=== PATIENT | female | born 1955 | race Caucasian/White ===

== ENCOUNTER 2017-11-23 09:51 | Outpatient (CLI) | payer MEDICARE, MEDICAID | END 2017-11-23 09:52 | disposition home or self-care (01) | LOC: EDSTATUS 10:00 | PROVIDERS: ATTEND Family Medicine | DX: B91 Sequelae of poliomyelitis (principal) | CPT/HCPCS: 97139; G8978; G8979; G8980 ==

== ENCOUNTER 2023-08-16 14:27 | Emergency (ER) | payer MEDICAID, OTHER ==
[2023-08-16 15:51] LABS: #Eosinphils 0.1 thou/uL (0.0-0.7); #Monocytes 0.6 thou/uL (0.11-0.59); #Neutrophils 7.9 thou/uL (1.40-6.50); %Basophils 0.2 % (0.0-1.0); %Lymphocytes 19.2 % (21.0-51.0); %Monocytes 5.6 % (0.0-10.0); %Neutrophils 73.4 % (42.0-75.0); Hematocrit 31.8 % (36.0-47.0); Hemoglobin 9.5 g/dL (12.0-16.0); Mean Corpuscular HGB CONC 29.9 g/dL (32.0-36.0); Mean Corpuscular Hemoglobin 27.1 pg (27.0-31.0); Mean Corpuscular Volume 90.9 fl (78.0-98.0); Mean Platelet Volume 9.5 fL (7.4-10.4); Platelet Count 299 10x3/uL (130-400); RBC Distribution Width 17.3 % (11.5-14.5); White Blood Cell (WBC) Count 10.8 10x3/uL (4.8-10.8)
[2023-08-16 16:24] LABS: ALT (SGPT) 10 U/L (8-55); AST (SGOT) 12 U/L (5-34); Albumin 2.5 g/dL (3.4-4.8); Alkaline Phosphatase 138 U/L (40-110); Anion Gap 16 mmol/L (10-20); BUN (Urea Nitrogen) 14 mg/dL (9.8-20.1); Bilirubin, Total 0.6 mg/dL (0.2-1.2); Calc. Creatinine Clearance 0 mL/min (70-130); Calcium 9.2 mg/dL (7.8-10.44); Carbon Dioxide 22 mmol/L (23-31); Chloride 99 mmol/L (98-107); Estimated GFR 88; Globulin 4.5 g/dL (2.4-3.5); Glucose 115 mg/dL (80-115); Potassium 3.8 mmol/L (3.5-5.1); Sodium 133 mmol/L (136-145)
== END 2023-08-16 21:53 | disposition home or self-care (01) ==
LOC: ERS 14:27
DX: L03.317 Cellulitis of buttock (principal); I10 Essential (primary) hypertension; F17.210 Nicotine dependence, cigarettes, uncomplicated
CPT/HCPCS: 36415; 80053; 85025; 99283

== ENCOUNTER 2023-09-15 23:30 | Inpatient (IN) | payer OTHER ==
[2023-09-16 00:33] LABS: #Monocytes 0.5 thou/uL (0.11-0.59); #Neutrophils 8.3 thou/uL (1.40-6.50); %Basophils 0.2 % (0.0-1.0); %Eosinophils 0.2 % (0.0-10.0); %Lymphocytes 9.7 % (21.0-51.0); %Monocytes 5.3 % (0.0-10.0); %Neutrophils 83.9 % (42.0-75.0); Hematocrit 29.2 % (36.0-47.0); Hemoglobin 8.8 g/dL (12.0-16.0); Mean Corpuscular HGB CONC 30.1 g/dL (32.0-36.0); Mean Corpuscular Hemoglobin 27.6 pg (27.0-31.0); Mean Corpuscular Volume 91.5 fl (78.0-98.0); Mean Platelet Volume 9.6 fL (7.4-10.4); Platelet Count 274 10x3/uL (130-400); RBC Distribution Width 16.9 % (11.5-14.5); Red Blood Cell (RBC) Count 3.19 mill/uL (4.20-5.40); White Blood Cell (WBC) Count 9.9 10x3/uL (4.8-10.8)
[2023-09-16 00:54] LABS: ALT (SGPT) 11 U/L (8-55); AST (SGOT) 16 U/L (5-34); Albumin 2.5 g/dL (3.4-4.8); Alkaline Phosphatase 122 U/L (40-110); Anion Gap 15 mmol/L (10-20); BUN (Urea Nitrogen) 21 mg/dL (9.8-20.1); Bilirubin, Total 0.5 mg/dL (0.2-1.2); Calc. Creatinine Clearance 0 mL/min (70-130); Calcium 10.6 mg/dL (7.8-10.44); Carbon Dioxide 20 mmol/L (23-31); Chloride 104 mmol/L (98-107); Estimated GFR 55; Globulin 4.4 g/dL (2.4-3.5); Glucose 83 mg/dL (80-115); Potassium 3.3 mmol/L (3.5-5.1); Protein, Total 6.9 g/dL (5.8-8.1); Sodium 136 mmol/L (136-145)
[2023-09-16] MEDS ORDERED: Potassium Chloride 20 MEQ TAB ONE (01:20)
[2023-09-16] MEDS ORDERED: Sodium Chloride 0.9% 100 ML ONE (01:46)
[2023-09-16] MEDS ORDERED: Cefepime 2 GM VIAL ONE (01:46)
[2023-09-16] MEDS ORDERED: Morphine 4 MG/ML VIAL ONE (01:46)
[2023-09-16] MEDS ORDERED: Ondansetron PF 4 MG/2 ML Vial ONE (01:46)
[2023-09-16] MEDS ORDERED: NS 0.9% w/ 20 MEQ KCL 1,000 ML ONE (01:47)
[2023-09-16 02:03] LABS: Magnesium 1.6 mg/dL (1.6-2.6)
[2023-09-16 02:05] LABS: Troponin I Less than 0.010 ng/mL (< 0.028)
[2023-09-16] MEDS ORDERED: Acetaminophen 650 MG Suppository ONE (02:12)
[2023-09-16 02:50] LABS: Bilirubin Negative (Negative); Blood, Urine Large (Negative); Glucose, Urine (Dipstick) Negative (Negative); Ketone, Urine Trace mg/dL (Negative); Leukocyte Moderate (Negative); Nitrite Positive (Negative); Protein, Urine (Dipstick) 100 mg/dL (Neg-Trace); Specific Gravity, Urine 1.025 (1.005-1.030); Urobilinogen 0.2 mg/dL (Less than 2)
[2023-09-16 02:51] LABS: Clarity Turbid (Clear)
[2023-09-16 02:54] LABS: SARS-CoV-2 NAA Rapid Test Not Detected (NotDetected)
[2023-09-16 03:03] LABS: Bacteria/HPF 4+ HPF (None Seen); CAUTI Indications for Culture Fever or rigors; RBC/HPF Greater than 50 HPF (0-3); Squamous Epithelial None Seen HPF (0-3); WBC/HPF Greater than 50 HPF (0-3)
[2023-09-16 03:05] LABS: Bilirubin Unable to Interpret (Negative); Blood, Urine Unable to Interpret (Negative); Clarity Turbid (Clear); Glucose, Urine (Dipstick) Unable to Interpret mg/dL (Negative); Ketone, Urine Unable to Interpret mg/dL (Negative); Leukocyte Unable to Interpret Leu/uL (Negative); Nitrite Unable to Interpret (Negative); Protein, Urine (Dipstick) Unable to Interpret mg/dL (Neg-Trace); Specific Gravity, Urine 1.021 (1.002-1.036); Urine Culture Reflex Yes Yes; Urobilinogen UNABLE TO INTERPRET mg/dL (Less than 2)
[2023-09-16 03:07] LABS: Bacteria/HPF 4+ HPF (None Seen); CAUTI Indications for Culture Dysuria,urgency,freq; RBC/HPF 21-50 HPF (0-3); WBC/HPF Greater than 50 HPF (0-3)
[2023-09-16] MEDS ORDERED: Ondansetron ODT 4 MG TAB PO PRN (04:19)
[2023-09-16] MEDS ORDERED: Acetaminophen 650 MG Suppository PR PRN (04:19)
[2023-09-16] MEDS ORDERED: NOREPINEPHRINE 8 MG/250 ML-D5W 250 ML ONE (04:55)
[2023-09-16] MEDS ORDERED: NOREPINEPHRINE 8 MG/250 ML-D5W 250 ML IVPB SCH (07:00)
[2023-09-16] MEDS ORDERED: Electrolyte Replacement Protocol 1 EACH FS SCH (07:30)
[2023-09-16] MEDS ORDERED: Electrolyte Replacement Protocol FS PRN (08:00)
[2023-09-16] MEDS ORDERED: Ipratropium/Albuterol 3 ML NEB NEB PRN (08:20)
[2023-09-16] MEDS: Sodium Chloride 0.9% 500 ML IV SCH (08:59)
[2023-09-16] MEDS: Pantoprazole 40 MG VIAL IVP SCH (08:59)
[2023-09-16] MEDS: Senokot S 8.6-50 MG TAB PO SCH (08:59)
[2023-09-16] MEDS: Hydrocortisone Sod Succ/PF 100 mg/2 ml Vial IVP SCH (08:59)
[2023-09-16] MEDS: Vancomycin (BATCH) 1.5 GM in Premix 1 BAG IVPB SCH (08:59)
[2023-09-16] MEDS: Sodium Chloride 0.9% 1,000 ML IV SCH (08:59)
[2023-09-16] MEDS: Albumin 25% 25 GM (100 mL) BOT IVPB SCH (08:59)
[2023-09-16] MEDS ORDERED: Apixaban 5 MG TAB PO SCH (09:00)
[2023-09-16 09:09] LABS: Anion Gap 14 mmol/L (10-20); BUN (Urea Nitrogen) 25 mg/dL (9.8-20.1); Calc. Creatinine Clearance 50 mL/min (70-130); Carbon Dioxide 18 mmol/L (23-31); Chloride 108 mmol/L (98-107); Estimated GFR 45; Glucose 111 mg/dL (80-115); Magnesium 1.5 mg/dL (1.6-2.6); Phosphorus 3.6 mg/dL (2.3-4.7); Potassium 3.6 mmol/L (3.5-5.1); Sodium 136 mmol/L (136-145)
[2023-09-16 09:15] LABS: #Monocytes 0.7 thou/uL (0.11-0.59); #Neutrophils 9.7 thou/uL (1.40-6.50); %Basophils 0.3 % (0.0-1.0); %Lymphocytes 8.9 % (21.0-51.0); %Monocytes 6.2 % (0.0-10.0); %Neutrophils 83.4 % (42.0-75.0); Hematocrit 31.5 % (36.0-47.0); Hemoglobin 8.8 g/dL (12.0-16.0); Mean Corpuscular HGB CONC 27.9 g/dL (32.0-36.0); Mean Corpuscular Hemoglobin 27.4 pg (27.0-31.0); Mean Platelet Volume 10.4 fL (7.4-10.4); Platelet Count 258 10x3/uL (130-400); RBC Distribution Width 17.2 % (11.5-14.5); Red Blood Cell (RBC) Count 3.21 mill/uL (4.20-5.40); White Blood Cell (WBC) Count 11.6 10x3/uL (4.8-10.8)
[2023-09-16 09:17] LABS: Mean Corpuscular Volume 98.1 fl (78.0-98.0)
[2023-09-16 10:38] LABS: Ovalocytes SLIGHT = 2-5 cells (100X) (0-1/hpf)
[2023-09-16 10:39] LABS: Platelet Adequacy Comment Appears Adequate
[2023-09-16] MEDS ORDERED: Potassium Bicarbonate/Cit Ac 20 MEQ TAB PO SCH (11:30)
[2023-09-16] MEDS: Magnesium 2 GM/50 ML(in water) 2 GM in Premix 1 BAG IVPB SCH (12:32)
[2023-09-16] MEDS: Cefepime 1 GM in Sodium Chloride 0.9% 100 ML IVPB SCH (12:32)
[2023-09-16] MEDS ORDERED: Iopamidol 370 76% 100 ML VIAL ONE (13:19)
[2023-09-16] MEDS: HYDROcodone/Acetaminophen 5/325 mg Tablet PO PRN (17:00)
[2023-09-17 04:53] LABS: #Monocytes 0.2 thou/uL (0.11-0.59); #Neutrophils 6.7 thou/uL (1.40-6.50); %Monocytes 2.5 % (0.0-10.0); %Neutrophils 86.9 % (42.0-75.0); Hemoglobin 6.4 g/dL (12.0-16.0); Mean Corpuscular HGB CONC 29.5 g/dL (32.0-36.0); Mean Corpuscular Hemoglobin 27.1 pg (27.0-31.0); Mean Platelet Volume 10.2 fL (7.4-10.4); Platelet Count 214 10x3/uL (130-400); RBC Distribution Width 17.1 % (11.5-14.5); Red Blood Cell (RBC) Count 2.36 mill/uL (4.20-5.40); White Blood Cell (WBC) Count 7.7 10x3/uL (4.8-10.8)
[2023-09-17 05:10] LABS: Hematocrit 21.7 % (36.0-47.0); Mean Corpuscular Volume 91.9 fl (78.0-98.0)
[2023-09-17 05:16] LABS: Anion Gap 15 mmol/L (10-20); BUN (Urea Nitrogen) 28 mg/dL (9.8-20.1); Calc. Creatinine Clearance 47 mL/min (70-130); Calcium 9.8 mg/dL (7.8-10.44); Carbon Dioxide 18 mmol/L (23-31); Chloride 110 mmol/L (98-107); Estimated GFR 41; Glucose 137 mg/dL (80-115); Magnesium 2.4 mg/dL (1.6-2.6); Potassium 3.8 mmol/L (3.5-5.1); Sodium 139 mmol/L (136-145)
[2023-09-17] MEDS: Vancomycin (BATCH) 1.25 GM in Premix 1 BAG IVPB SCH (05:31)
[2023-09-17 10:11] VITALS: BMI 30.5
[2023-09-17] MEDS ORDERED: Rocuronium Bromide 10 MG/ML (10ML VIAL) ONE (10:34)
[2023-09-17] MEDS ORDERED: fentaNYL PF 100 MCG/2 ML SYRINGE ONE (10:34)
[2023-09-17] MEDS ORDERED: Midazolam HCl 2 mg/2 ml Vial ONE (10:34)
[2023-09-17] MEDS ORDERED: PROPOFOL 20 ML ONE (10:34)
[2023-09-17] MEDS ORDERED: Lidocaine 2% PF 5 ML VIAL ONE (10:34)
[2023-09-17] MEDS ORDERED: Bupivacaine 0.25% HCL 30 ML VIAL ONE (10:36)
[2023-09-17] MEDS ORDERED: EPINEPHrine 1 MG/ML VIAL ONE (10:36)
[2023-09-17] MEDS: Lactated Ringer's 1,000 ML IV SCH (12:55)
[2023-09-17] MEDS: Ondansetron PF 4 MG/2 ML Vial IVP PRN (12:55)
[2023-09-17 17:57] LABS: Hematocrit 27.3 % (36.0-47.0); Hematocrit 27.8 % (36.0-47.0); Hemoglobin 8.4 g/dL (12.0-16.0); Hemoglobin 8.6 g/dL (12.0-16.0); Mean Corpuscular HGB CONC 30.8 g/dL (32.0-36.0); Mean Platelet Volume 9.9 fL (7.4-10.4); Platelet Count 240 10x3/uL (130-400); Platelet Count 246 10x3/uL (130-400); White Blood Cell (WBC) Count 11.9 10x3/uL (4.8-10.8)
[2023-09-17] MEDS: HYDROcodone/Acetaminophen 5/325 mg Tablet PO PRN (20:15)
[2023-09-17] MEDS: guaiFENesin ER 600 MG TAB PO SCH (20:16)
[2023-09-17] MEDS: Hydrocortisone Sod Succ/PF 100 mg/2 ml Vial IVP SCH (20:16)
[2023-09-18 04:29] LABS: #Monocytes 0.3 thou/uL (0.11-0.59); #Neutrophils 9.9 thou/uL (1.40-6.50); %Basophils 0.1 % (0.0-1.0); %Lymphocytes 10.1 % (21.0-51.0); %Monocytes 2.8 % (0.0-10.0); Hematocrit 25.9 % (36.0-47.0); Mean Corpuscular HGB CONC 30.9 g/dL (32.0-36.0); Mean Corpuscular Hemoglobin 28.1 pg (27.0-31.0); Mean Corpuscular Volume 90.9 fl (78.0-98.0); Mean Platelet Volume 10.1 fL (7.4-10.4); Platelet Count 233 10x3/uL (130-400); RBC Distribution Width 17.2 % (11.5-14.5); Red Blood Cell (RBC) Count 2.85 mill/uL (4.20-5.40); White Blood Cell (WBC) Count 11.5 10x3/uL (4.8-10.8)
[2023-09-18] MEDS: Morphine 2 MG/ML VIAL SLOW IVP PRN (04:44)
[2023-09-18 04:54] LABS: Vancomycin, Trough 20.2 ug/mL
[2023-09-18 04:58] LABS: Anion Gap 10 mmol/L (10-20); BUN (Urea Nitrogen) 28 mg/dL (9.8-20.1); Calc. Creatinine Clearance 64 mL/min (70-130); Calcium 9.6 mg/dL (7.8-10.44); Carbon Dioxide 20 mmol/L (23-31); Chloride 110 mmol/L (98-107); Estimated GFR 59; Glucose 117 mg/dL (80-115); Potassium 3.4 mmol/L (3.5-5.1); Sodium 137 mmol/L (136-145)
[2023-09-18] MEDS ORDERED: PROPOFOL 20 ML ONE (07:01)
[2023-09-18] MEDS ORDERED: fentaNYL PF 100 MCG/2 ML SYRINGE ONE (07:01)
[2023-09-18] MEDS ORDERED: Rocuronium Bromide 10 MG/ML (10ML VIAL) ONE (07:02)
[2023-09-18] MEDS ORDERED: Lidocaine 1% PF 5 ML VIAL ONE ×2 (07:02→12:33)
[2023-09-18] MEDS ORDERED: Famotidine/PF 20 mg/2ml Vial ONE (07:31)
[2023-09-18] MEDS ORDERED: Midazolam HCl 2 mg/2 ml Vial ONE (07:31)
[2023-09-18] MEDS ORDERED: ePHEDrine Sulfate 50 MG/10 ML VIAL ONE (08:18)
[2023-09-18] MEDS ORDERED: SUGAMMADEX SODIUM 200 MG/2 ML VIAL ONE (08:23)
[2023-09-18] MEDS ORDERED: Ondansetron PF 4 MG/2 ML Vial ONE (08:23)
[2023-09-18] MEDS ORDERED: PACU-Morphine 4MG/ML VIAL SLOW IVP PRN (08:47)
[2023-09-18] MEDS ORDERED: Ondansetron HCl/PF 4 MG/2 ML Vial IVP PRN (08:47)
[2023-09-18] MEDS ORDERED: Promethazine HCl 25 MG/ML VIAL IM PRN (08:47)
[2023-09-18] MEDS: Potassium Chloride 20 MEQ in Premix 1 BAG IVPB SCH (10:42)
[2023-09-18] MEDS ORDERED: Sodium Bicarbonate 0.5 MEQ/ML SDV 10 ML ONE (12:33)
[2023-09-18] MEDS ORDERED: Iopamidol 100 ML FS ONE (12:33)
[2023-09-18] MEDS ORDERED: fentaNYL 50 mcg/mL 1 mL Vial ONE (12:58)
[2023-09-18] MEDS: diphenhydrAMINE 50 MG/ML VIAL IVP SCH (14:12)
[2023-09-18] MEDS: Gabapentin 300 MG CAP PO SCH (21:14)
[2023-09-19 06:00] LABS: Anion Gap 10 mmol/L (10-20); BUN (Urea Nitrogen) 23 mg/dL (9.8-20.1); Calc. Creatinine Clearance 80 mL/min (70-130); Calcium 9.7 mg/dL (7.8-10.44); Carbon Dioxide 21 mmol/L (23-31); Chloride 110 mmol/L (98-107); Estimated GFR 78; Glucose 125 mg/dL (80-115); Potassium 3.9 mmol/L (3.5-5.1); Sodium 137 mmol/L (136-145)
[2023-09-19 06:13] LABS: #Monocytes 0.4 thou/uL (0.11-0.59); #Neutrophils 8.4 thou/uL (1.40-6.50); %Basophils 0.1 % (0.0-1.0); %Lymphocytes 12.1 % (21.0-51.0); %Monocytes 3.5 % (0.0-10.0); %Neutrophils 83.4 % (42.0-75.0); Hematocrit 30.3 % (36.0-47.0); Hemoglobin 9.4 g/dL (12.0-16.0); Mean Corpuscular Hemoglobin 27.7 pg (27.0-31.0); Mean Corpuscular Volume 89.4 fl (78.0-98.0); Platelet Count 189 10x3/uL (130-400); RBC Distribution Width 17.1 % (11.5-14.5); Red Blood Cell (RBC) Count 3.39 mill/uL (4.20-5.40)
[2023-09-19] MEDS: Hydrocortisone Sod Succ/PF 100 mg/2 ml Vial IVP SCH (10:05)
[2023-09-19] MEDS: Amlodipine 5 MG TAB PO SCH (10:06)
[2023-09-19] MEDS: Acetaminophen 325 MG TAB PO PRN (10:25)
[2023-09-19] MEDS ORDERED: Calcium Carbonate 500 MG ChewTAB PO PRN (19:28)
[2023-09-19] MEDS: Apixaban 5 MG TAB PO SCH (21:47)
[2023-09-20 07:05] LABS: Anion Gap 13 mmol/L (10-20); BUN (Urea Nitrogen) 22 mg/dL (9.8-20.1); Calc. Creatinine Clearance 92 mL/min (70-130); Calcium 9.7 mg/dL (7.8-10.44); Carbon Dioxide 22 mmol/L (23-31); Chloride 110 mmol/L (98-107); Estimated GFR 92; Glucose 76 mg/dL (80-115); Potassium 3.7 mmol/L (3.5-5.1); Sodium 141 mmol/L (136-145)
[2023-09-20 07:28] LABS: #Monocytes 1.3 thou/uL (0.11-0.59); %Basophils 0.1 % (0.0-1.0); %Eosinophils 0.2 % (0.0-10.0); %Lymphocytes 23.8 % (21.0-51.0); %Monocytes 7.9 % (0.0-10.0); %Neutrophils 67.3 % (42.0-75.0); Hematocrit 35.6 % (36.0-47.0); Hemoglobin 10.9 g/dL (12.0-16.0); Mean Corpuscular HGB CONC 30.6 g/dL (32.0-36.0); Mean Corpuscular Hemoglobin 27.7 pg (27.0-31.0); Mean Corpuscular Volume 90.6 fl (78.0-98.0); Mean Platelet Volume 11.3 fL (7.4-10.4); Platelet Count 190 10x3/uL (130-400); Red Blood Cell (RBC) Count 3.93 mill/uL (4.20-5.40); White Blood Cell (WBC) Count 16.3 10x3/uL (4.8-10.8)
[2023-09-20] MEDS ORDERED: oxyCODONE 5 MG TAB PO PRN (08:18)
[2023-09-20] MEDS: Meropenem 1 GM in Sodium Chloride 0.9% 100 ML IVPB SCH ×2 (08:51→17:20)
[2023-09-20] MEDS: Acetaminophen 500 MG TAB PO SCH (08:56)
[2023-09-20] MEDS ORDERED: Lidocaine 1% PF 5 ML VIAL ONE (08:57)
[2023-09-20] MEDS ORDERED: Sodium Bicarbonate 0.5 MEQ/ML SDV 10 ML ONE (08:57)
[2023-09-20] MEDS: HYDROcodone/Acetaminophen 5/325 mg Tablet PO PRN (17:29)
[2023-09-20] MEDS: Nicotine 14 MG PATCH TD SCH (18:34)
[2023-09-21 05:41] LABS: #Eosinphils 0.1 thou/uL (0.0-0.7); #Monocytes 0.5 thou/uL (0.11-0.59); #Neutrophils 7.5 thou/uL (1.40-6.50); %Basophils 0.1 % (0.0-1.0); %Eosinophils 0.8 % (0.0-10.0); %Monocytes 4.9 % (0.0-10.0); %Neutrophils 75.6 % (42.0-75.0); Hematocrit 28.5 % (36.0-47.0); Hemoglobin 8.7 g/dL (12.0-16.0); Mean Corpuscular HGB CONC 30.5 g/dL (32.0-36.0); Mean Corpuscular Hemoglobin 27.7 pg (27.0-31.0); Mean Corpuscular Volume 90.8 fl (78.0-98.0); Mean Platelet Volume 9.6 fL (7.4-10.4); Platelet Count 183 10x3/uL (130-400); RBC Distribution Width 16.8 % (11.5-14.5); Red Blood Cell (RBC) Count 3.14 mill/uL (4.20-5.40); White Blood Cell (WBC) Count 9.9 10x3/uL (4.8-10.8)
[2023-09-21 06:11] LABS: Anion Gap 8 mmol/L (10-20); BUN (Urea Nitrogen) 21 mg/dL (9.8-20.1); Calc. Creatinine Clearance 103 mL/min (70-130); Calcium 9.1 mg/dL (7.8-10.44); Carbon Dioxide 26 mmol/L (23-31); Chloride 108 mmol/L (98-107); Estimated GFR 97; Glucose 101 mg/dL (80-115); Potassium 2.9 mmol/L (3.5-5.1); Sodium 139 mmol/L (136-145)
[2023-09-21] MEDS: Potassium Chloride 20 MEQ in Premix 1 BAG IVPB SCH (10:28)
[2023-09-21] MEDS: HYDROcodone/Acetaminophen 5/325 mg Tablet PO PRN ×2 (14:38→20:55)
[2023-09-22] MEDS: Acetaminophen 325 MG TAB PO PRN (04:37)
[2023-09-22 04:56] LABS: #Eosinphils 0.1 thou/uL (0.0-0.7); #Monocytes 0.6 thou/uL (0.11-0.59); #Neutrophils 8.3 thou/uL (1.40-6.50); %Basophils 0.1 % (0.0-1.0); %Eosinophils 1.3 % (0.0-10.0); %Lymphocytes 15.2 % (21.0-51.0); %Monocytes 5.5 % (0.0-10.0); %Neutrophils 77.2 % (42.0-75.0); Hematocrit 29.2 % (36.0-47.0); Hemoglobin 8.8 g/dL (12.0-16.0); Mean Corpuscular HGB CONC 30.1 g/dL (32.0-36.0); Mean Corpuscular Hemoglobin 27.7 pg (27.0-31.0); Mean Corpuscular Volume 91.8 fl (78.0-98.0); Mean Platelet Volume 10.1 fL (7.4-10.4); Platelet Count 204 10x3/uL (130-400); RBC Distribution Width 16.7 % (11.5-14.5); Red Blood Cell (RBC) Count 3.18 mill/uL (4.20-5.40); White Blood Cell (WBC) Count 10.7 10x3/uL (4.8-10.8)
[2023-09-22 05:34] LABS: Anion Gap 6 mmol/L (10-20); BUN (Urea Nitrogen) 16 mg/dL (9.8-20.1); Calc. Creatinine Clearance 112 mL/min (70-130); Calcium 9.2 mg/dL (7.8-10.44); Carbon Dioxide 29 mmol/L (23-31); Chloride 106 mmol/L (98-107); Estimated GFR 99; Glucose 85 mg/dL (80-115); Potassium 3.2 mmol/L (3.5-5.1); Sodium 138 mmol/L (136-145)
[2023-09-23 04:37] LABS: #Eosinphils 0.2 thou/uL (0.0-0.7); #Monocytes 0.7 thou/uL (0.11-0.59); #Neutrophils 7.9 thou/uL (1.40-6.50); %Basophils 0.1 % (0.0-1.0); %Eosinophils 1.6 % (0.0-10.0); %Lymphocytes 16.2 % (21.0-51.0); %Monocytes 6.2 % (0.0-10.0); %Neutrophils 75.1 % (42.0-75.0); Hematocrit 28.4 % (36.0-47.0); Hemoglobin 8.8 g/dL (12.0-16.0); Mean Corpuscular Hemoglobin 28.2 pg (27.0-31.0); Mean Platelet Volume 9.8 fL (7.4-10.4); Platelet Count 199 10x3/uL (130-400); RBC Distribution Width 16.5 % (11.5-14.5); Red Blood Cell (RBC) Count 3.12 mill/uL (4.20-5.40); White Blood Cell (WBC) Count 10.5 10x3/uL (4.8-10.8)
[2023-09-23 05:00] LABS: Anion Gap 8 mmol/L (10-20); BUN (Urea Nitrogen) 13 mg/dL (9.8-20.1); Calc. Creatinine Clearance 118 mL/min (70-130); Calcium 9.2 mg/dL (7.8-10.44); Carbon Dioxide 31 mmol/L (23-31); Chloride 101 mmol/L (98-107); Estimated GFR 101; Glucose 99 mg/dL (80-115); Potassium 3.1 mmol/L (3.5-5.1); Sodium 137 mmol/L (136-145)
[2023-09-23] MEDS: Potassium Bicarbonate/Cit Ac 20 MEQ TAB PO SCH (11:14)
[2023-09-24 04:46] LABS: #Eosinphils 0.1 thou/uL (0.0-0.7); #Monocytes 0.8 thou/uL (0.11-0.59); #Neutrophils 9.9 thou/uL (1.40-6.50); %Basophils 0.2 % (0.0-1.0); %Eosinophils 1.1 % (0.0-10.0); %Lymphocytes 11.2 % (21.0-51.0); %Monocytes 6.4 % (0.0-10.0); %Neutrophils 80.5 % (42.0-75.0); Hematocrit 30.3 % (36.0-47.0); Hemoglobin 9.1 g/dL (12.0-16.0); Mean Corpuscular Hemoglobin 27.3 pg (27.0-31.0); Mean Platelet Volume 10.1 fL (7.4-10.4); Platelet Count 211 10x3/uL (130-400); RBC Distribution Width 16.3 % (11.5-14.5); Red Blood Cell (RBC) Count 3.33 mill/uL (4.20-5.40); White Blood Cell (WBC) Count 12.3 10x3/uL (4.8-10.8)
[2023-09-24 05:10] LABS: Anion Gap 10 mmol/L (10-20); BUN (Urea Nitrogen) 11 mg/dL (9.8-20.1); Calc. Creatinine Clearance 120 mL/min (70-130); Calcium 9.2 mg/dL (7.8-10.44); Carbon Dioxide 30 mmol/L (23-31); Chloride 99 mmol/L (98-107); Estimated GFR 101; Glucose 77 mg/dL (80-115); Sodium 136 mmol/L (136-145)
[2023-09-24] MEDS ORDERED: Potassium Chloride 20 MEQ in Premix 1 BAG IVPB SCH (12:00)
[2023-09-24] MEDS: Potassium Bicarbonate/Cit Ac 20 MEQ TAB PO SCH (13:02)
[2023-09-25 05:50] LABS: #Eosinphils 0.2 thou/uL (0.0-0.7); #Monocytes 0.6 thou/uL (0.11-0.59); #Neutrophils 8.7 thou/uL (1.40-6.50); %Basophils 0.2 % (0.0-1.0); %Eosinophils 1.6 % (0.0-10.0); %Lymphocytes 11.9 % (21.0-51.0); %Monocytes 5.3 % (0.0-10.0); %Neutrophils 80.5 % (42.0-75.0); Hemoglobin 8.2 g/dL (12.0-16.0); Mean Corpuscular HGB CONC 29.3 g/dL (32.0-36.0); Mean Corpuscular Hemoglobin 26.9 pg (27.0-31.0); Mean Corpuscular Volume 91.8 fl (78.0-98.0); Mean Platelet Volume 10.2 fL (7.4-10.4); Platelet Count 199 10x3/uL (130-400); Red Blood Cell (RBC) Count 3.05 mill/uL (4.20-5.40); White Blood Cell (WBC) Count 10.9 10x3/uL (4.8-10.8)
[2023-09-25 06:13] LABS: Anion Gap 11 mmol/L (10-20); BUN (Urea Nitrogen) 13 mg/dL (9.8-20.1); Calc. Creatinine Clearance 123 mL/min (70-130); Calcium 9.3 mg/dL (7.8-10.44); Carbon Dioxide 28 mmol/L (23-31); Chloride 99 mmol/L (98-107); Estimated GFR 101; Glucose 79 mg/dL (80-115); Potassium 2.9 mmol/L (3.5-5.1); Sodium 135 mmol/L (136-145)
[2023-09-25 08:42] VITALS: BP 93/50
[2023-09-25 09:37] VITALS: TEMP 97.8
[2023-09-25] MEDS: Potassium Bicarbonate/Cit Ac 20 MEQ TAB PO SCH (10:29)
== END 2023-09-25 15:48 | disposition critical access hospital (66) | DRG 853 ==
LOC: ERS 23:30 → ERHOLD 09-16 04:00 → CCU 09-16 06:56 → MSONC 09-16 16:46
PROVIDERS: ADMIT Family Medicine; ATTEND Hospitalist
PROC: 30233N1 Transfusion of Nonautologous Red Blood Cells into Peripheral Vein, Percutaneous Approach (ICD-10-PCS; 2023-09-16)
PROC: 3E03329 Introduction of Other Anti-infective into Peripheral Vein, Percutaneous Approach (ICD-10-PCS; 2023-09-16)
PROC: 3E033XZ Introduction of Vasopressor into Peripheral Vein, Percutaneous Approach (ICD-10-PCS; 2023-09-16)
PROC: 0JB70ZZ Excision of Back Subcutaneous Tissue and Fascia, Open Approach (ICD-10-PCS; principal; 2023-09-18)
PROC: 0T25X0Z Change Drainage Device in Kidney, External Approach (ICD-10-PCS; 2023-09-18)
PROC: 02HV33Z Insertion of Infusion Device into Superior Vena Cava, Percutaneous Approach (ICD-10-PCS; 2023-09-20)
PROC: B5181ZA Fluoroscopy of Superior Vena Cava using Low Osmolar Contrast, Guidance (ICD-10-PCS; 2023-09-20)
PROC: 3E04329 Introduction of Other Anti-infective into Central Vein, Percutaneous Approach (ICD-10-PCS; 2023-09-20)
PROC: B548ZZA Ultrasonography of Superior Vena Cava, Guidance (ICD-10-PCS; 2023-09-20)
DX: A41.9 Sepsis, unspecified organism (principal); J18.9 Pneumonia, unspecified organism; R65.21 Severe sepsis with septic shock; J96.21 Acute and chronic respiratory failure with hypoxia; N39.0 Urinary tract infection, site not specified; C79.51 Secondary malignant neoplasm of bone; C78.2 Secondary malignant neoplasm of pleura; N17.9 Acute kidney failure, unspecified; C78.00 Secondary malignant neoplasm of unspecified lung; Z51.5 Encounter for palliative care; N32.0 Bladder-neck obstruction; B96.20 Unspecified Escherichia coli [E. coli] as the cause of diseases classified elsewhere; B96.1 Klebsiella pneumoniae [K. pneumoniae] as the cause of diseases classified elsewhere; I10 Essential (primary) hypertension; M54.9 Dorsalgia, unspecified; G89.29 Other chronic pain; L89.150 Pressure ulcer of sacral region, unstageable; F17.210 Nicotine dependence, cigarettes, uncomplicated; R53.81 Other malaise; E87.6 Hypokalemia; I48.91 Unspecified atrial fibrillation; F12.10 Cannabis abuse, uncomplicated; Z88.0 Allergy status to penicillin; Z91.148 Patient's other noncompliance with medication regimen for other reason; Z11.52 Encounter for screening for COVID-19; Z79.01 Long term (current) use of anticoagulants
CPT/HCPCS: 0241U; 36415; 36430; 36569; 50435; 70450; 70551; 71045; 71275; 74177; 80048; 80053; 80202; 81001; 83605; 83735; 83880; 84100; 84145; 84484; 85025; 86850; 86900; 86901; 87040; 87077; 87081; 87086; 87186; 93005; 96374; 96375; 97139; C1729; C1751; C9113; J0171; J0665; J0692; J1720; J2001; J2185; J2250; J2270; J2272; J2405; J2704; J3010; J3370; J3475; J3480; J3490; J7030; J7050; J7120; P9016; P9047; Q9967; S0028

== ENCOUNTER 2023-10-01 16:29 | Inpatient (IN) | payer OTHER ==
[2023-10-01 18:04] LABS: #Eosinphils 0.2 thou/uL (0.0-0.7); #Monocytes 0.4 thou/uL (0.11-0.59); #Neutrophils 6.6 thou/uL (1.40-6.50); %Basophils 0.2 % (0.0-1.0); %Eosinophils 1.9 % (0.0-10.0); %Lymphocytes 12.4 % (21.0-51.0); %Neutrophils 79.9 % (42.0-75.0); Hematocrit 28.3 % (36.0-47.0); Hemoglobin 8.5 g/dL (12.0-16.0); Mean Corpuscular Hemoglobin 27.2 pg (27.0-31.0); Mean Corpuscular Volume 90.7 fl (78.0-98.0); Mean Platelet Volume 10.3 fL (7.4-10.4); Platelet Count 225 10x3/uL (130-400); RBC Distribution Width 15.6 % (11.5-14.5); Red Blood Cell (RBC) Count 3.12 mill/uL (4.20-5.40); White Blood Cell (WBC) Count 8.2 10x3/uL (4.8-10.8)
[2023-10-01 18:40] LABS: ALT (SGPT) Less than 7 U/L (8-55); AST (SGOT) 6 U/L (5-34); Albumin 2.3 g/dL (3.4-4.8); Alkaline Phosphatase 78 U/L (40-110); Anion Gap 11 mmol/L (10-20); BUN (Urea Nitrogen) 21 mg/dL (9.8-20.1); Bilirubin, Total 0.4 mg/dL (0.2-1.2); Calc. Creatinine Clearance 0 mL/min (70-130); Calcium 10.5 mg/dL (7.8-10.44); Carbon Dioxide 29 mmol/L (23-31); Chloride 98 mmol/L (98-107); Estimated GFR 50; Globulin 3.7 g/dL (2.4-3.5); Glucose 85 mg/dL (80-115); Potassium 3.8 mmol/L (3.5-5.1); Sodium 134 mmol/L (136-145)
[2023-10-01] MEDS ORDERED: Ondansetron ODT 4 MG TAB PO PRN (21:37)
[2023-10-01] MEDS ORDERED: Ondansetron PF 4 MG/2 ML Vial IVP PRN (21:37)
[2023-10-01] MEDS ORDERED: Acetaminophen 325 MG TAB PO PRN (21:37)
[2023-10-01] MEDS: Meropenem 1 GM in Sodium Chloride 0.9% 100 ML IVPB SCH (23:55)
[2023-10-01] MEDS ORDERED: HYDROcodone/Acetaminophen 5/325 mg Tablet ONE (23:57)
[2023-10-02] MEDS: HYDROcodone/Acetaminophen 5/325 mg Tablet PO SCH (00:02)
[2023-10-02] MEDS ORDERED: Meropenem 1 GM VIAL IVPB SCH (01:00)
[2023-10-02] MEDS: Dextrose 5%-Lactated Ringers 1,000 ML IV SCH (02:37)
[2023-10-02 06:26] LABS: #Eosinphils 0.2 thou/uL (0.0-0.7); #Monocytes 0.5 thou/uL (0.11-0.59); #Neutrophils 6.8 thou/uL (1.40-6.50); %Basophils 0.2 % (0.0-1.0); %Eosinophils 1.7 % (0.0-10.0); %Monocytes 5.4 % (0.0-10.0); %Neutrophils 76.3 % (42.0-75.0); Hemoglobin 8.2 g/dL (12.0-16.0); Mean Corpuscular HGB CONC 29.3 g/dL (32.0-36.0); Mean Corpuscular Hemoglobin 26.8 pg (27.0-31.0); Mean Corpuscular Volume 91.5 fl (78.0-98.0); Mean Platelet Volume 10.1 fL (7.4-10.4); Platelet Count 238 10x3/uL (130-400); RBC Distribution Width 15.8 % (11.5-14.5); Red Blood Cell (RBC) Count 3.06 mill/uL (4.20-5.40); White Blood Cell (WBC) Count 8.9 10x3/uL (4.8-10.8)
[2023-10-02 06:54] LABS: Anion Gap 11 mmol/L (10-20); BUN (Urea Nitrogen) 19 mg/dL (9.8-20.1); Calc. Creatinine Clearance 0 mL/min (70-130); Calcium 10.6 mg/dL (7.8-10.44); Carbon Dioxide 31 mmol/L (23-31); Chloride 98 mmol/L (98-107); Estimated GFR 48; Glucose 87 mg/dL (80-115); Potassium 3.9 mmol/L (3.5-5.1); Sodium 136 mmol/L (136-145)
[2023-10-02] MEDS ORDERED: HYDROcodone/Acetaminophen 5/325 mg Tablet ONE (07:31)
[2023-10-02] MEDS: Meropenem 1 GM in Sodium Chloride 0.9% 100 ML IVPB SCH (09:00)
[2023-10-02] MEDS ORDERED: Amlodipine 5 MG TAB ONE (09:01)
[2023-10-02] MEDS ORDERED: Famotidine 20 MG TAB ONE (09:02)
[2023-10-02] MEDS: Amlodipine 5 MG TAB PO SCH (09:28)
[2023-10-02] MEDS: Senokot S 8.6-50 MG TAB PO SCH (09:29)
[2023-10-02] MEDS: Famotidine/PF 20 mg/2ml Vial SLOW IVP SCH (09:29)
[2023-10-02] MEDS: Megestrol Acetate 800 MG/20 ML UDCUP PO SCH (09:29)
[2023-10-02] MEDS: Famotidine 20 MG TAB PO SCH (09:29)
[2023-10-02] MEDS ORDERED: Sodium Bicarbonate 2.5 MEQ/5 ML SDV ONE (12:55)
[2023-10-02] MEDS ORDERED: Sodium Chloride 0.9% 500 ML ONE (12:55)
[2023-10-02] MEDS ORDERED: Iopamidol 30 ML ONE ×2 (13:18→14:26)
[2023-10-02 17:42] VITALS: BMI 29.9
[2023-10-02] MEDS: Apixaban 5 MG TAB PO SCH (22:08)
[2023-10-03] MEDS: Megestrol Acetate 40 MG TAB PO SCH (08:15)
[2023-10-04 05:45] LABS: #Eosinphils 0.2 thou/uL (0.0-0.7); #Monocytes 0.4 thou/uL (0.11-0.59); %Basophils 0.1 % (0.0-1.0); %Eosinophils 2.1 % (0.0-10.0); %Lymphocytes 17.8 % (21.0-51.0); %Neutrophils 74.5 % (42.0-75.0); Hematocrit 25.2 % (36.0-47.0); Hemoglobin 7.5 g/dL (12.0-16.0); Mean Corpuscular HGB CONC 29.8 g/dL (32.0-36.0); Mean Corpuscular Hemoglobin 27.8 pg (27.0-31.0); Mean Corpuscular Volume 93.3 fl (78.0-98.0); Mean Platelet Volume 10.5 fL (7.4-10.4); Platelet Count 216 10x3/uL (130-400); RBC Distribution Width 15.6 % (11.5-14.5)
[2023-10-04 06:08] LABS: Anion Gap 11 mmol/L (10-20); BUN (Urea Nitrogen) 21 mg/dL (9.8-20.1); Calc. Creatinine Clearance 76 mL/min (70-130); Calcium 10.7 mg/dL (7.8-10.44); Carbon Dioxide 31 mmol/L (23-31); Chloride 99 mmol/L (98-107); Estimated GFR 76; Glucose 79 mg/dL (80-115); Potassium 3.8 mmol/L (3.5-5.1); Sodium 137 mmol/L (136-145)
[2023-10-04 16:32] VITALS: BP 108/67; TEMP 98.8
== END 2023-10-04 16:40 | disposition home or self-care (01) | DRG 699 ==
LOC: ERS 16:29 → ERHOLD 20:45 → SURG B 10-02 14:09 → T4-B 10-02 16:48 → OBSVTOIN 10-03 11:21
PROVIDERS: ADMIT Student in an Organized Health Care Education/Training Program; ATTEND Internal Medicine
PROC: 0T25X0Z Change Drainage Device in Kidney, External Approach (ICD-10-PCS; principal; 2023-10-02)
DX: T83.022A Displacement of nephrostomy catheter, initial encounter (principal); C79.51 Secondary malignant neoplasm of bone; J96.11 Chronic respiratory failure with hypoxia; N39.0 Urinary tract infection, site not specified; Z16.24 Resistance to multiple antibiotics; I82.622 Acute embolism and thrombosis of deep veins of left upper extremity; E87.1 Hypo-osmolality and hyponatremia; C67.9 Malignant neoplasm of bladder, unspecified; R53.81 Other malaise; I10 Essential (primary) hypertension; I48.0 Paroxysmal atrial fibrillation; E88.09 Other disorders of plasma-protein metabolism, not elsewhere classified; Z96.653 Presence of artificial knee joint, bilateral; Z98.890 Other specified postprocedural states; Z98.1 Arthrodesis status; Z79.899 Other long term (current) drug therapy; Z88.0 Allergy status to penicillin; Z99.81 Dependence on supplemental oxygen; Z51.5 Encounter for palliative care
CPT/HCPCS: 36415; 50435; 80048; 85025; 87086; 96374; 96376; 97139; C1729; G0378; J2185; J3490; J7030; Q9967